=== PATIENT | female | born 1970 | race Caucasian/White ===

== ENCOUNTER → 2020-11-04 | Outpatient (CLI) | payer OTHER ==
[~2020-11-04] MED LIST: ARIMIDEX 1 MG TA1 MG PO; COLACE 100MG C100 MG PO; FENOGLIDE40 MG PO; FOSAMAX70 MG PO; LIPITOR TAB 2020 MG PO; NEURONTIN 300300 MG PO; NORCO 5-325 TA1 EACH PO; OMEGA 3 1,0001 EACH PO; PATADAY2.5 ML OP; PROZAC 20 MG CA20 MG PO; VITAMIN C500 M4 PO; VITAMIN D350 MCG PO; ZYRTEC10 M3 PO; ZYRTEC10 MG PO
[2020-11-04 13:14] LABS: BUN/CREATININE RATIO 44 (0-10)
== END ==
LOC: LAB 11:55
PROVIDERS: Family Medicine
DX: E78.2 Mixed hyperlipidemia (principal)
CPT/HCPCS: 36415; 80053; 80061

== ENCOUNTER → 2021-02-17 | Outpatient (CLI) | payer OTHER | LOC: EXRD 14:14 | DX: M79.671 Pain in right foot (principal); M79.672 Pain in left foot; R20.2 Paresthesia of skin; R20.0 Anesthesia of skin | CPT/HCPCS: 73630 ==

== ENCOUNTER → 2021-03-03 | Outpatient (CLI) | payer OTHER | LOC: EXRD 01-26 08:45 | DX: R79.89 Other specified abnormal findings of blood chemistry (principal); K76.0 Fatty (change of) liver, not elsewhere classified; N28.1 Cyst of kidney, acquired | CPT/HCPCS: 76700 ==

== ENCOUNTER → 2021-03-12 | Day surgery (SDC) | payer OTHER | END | disposition home or self-care (01) | LOC: OR 06:51 | DX: D12.3 Benign neoplasm of transverse colon (principal); D12.4 Benign neoplasm of descending colon; D12.5 Benign neoplasm of sigmoid colon; K57.31 Diverticulosis of large intestine without perforation or abscess with bleeding; E78.2 Mixed hyperlipidemia; F41.9 Anxiety disorder, unspecified; I73.9 Peripheral vascular disease, unspecified; F32.9 Major depressive disorder, single episode, unspecified; G47.33 Obstructive sleep apnea (adult) (pediatric); K21.9 Gastro-esophageal reflux disease without esophagitis; E66.9 Obesity, unspecified; Z68.32 Body mass index [BMI] 32.0-32.9, adult; Z79.899 Other long term (current) drug therapy | CPT/HCPCS: J2704; J7030 ==

== ENCOUNTER → 2021-05-25 | Outpatient (CLI) | payer OTHER ==
[2021-05-26 07:13] LABS: ALPHA-1-ANTITRYPSIN, SERUM 127 mg/dL (101-187); HBSAG SCREEN Negative (Negative); HEP A AB, IGM Negative (Negative); HEP B CORE AB, IGM Negative (Negative); HEP C VIRUS AB <0.1 (0.0-0.9); THYROXINE (T4) 7.9 ug/dL (4.5-12.0); TRIIODOTHYRONINE (T3) 155 ng/dL (71-180)
[2021-05-26 15:10] LABS: MITOCHONDRIAL (M2) ANTIBODY <20.0 Units (0.0-20.0)
== END ==
LOC: LAB 14:43
PROVIDERS: Internal Medicine Gastroenterology
DX: R94.5 Abnormal results of liver function studies (principal)
CPT/HCPCS: 80074; 80076; 82103; 82728; 83540; 83550; 84436; 84443; 84480; 86038

== ENCOUNTER → 2021-07-14 | Outpatient (CLI) | payer OTHER ==
[2021-07-15 15:14] LABS: LIVER-KIDNEY MICROSOMAL AB 1.2 Units (0.0-20.0)
== END ==
LOC: LAB 10:31
PROVIDERS: Internal Medicine Gastroenterology
DX: R94.5 Abnormal results of liver function studies (principal)
CPT/HCPCS: 36415; 82784; 83516; 86376

== ENCOUNTER → 2021-10-18 | Outpatient (CLI) | payer OTHER | LOC: EXRD 14:46 | DX: M54.2 Cervicalgia (principal) | CPT/HCPCS: 72050 ==

== ENCOUNTER → 2021-11-23 | Outpatient (CLI) | payer OTHER | LOC: EXRD 10:18 | DX: M25.562 Pain in left knee (principal) | CPT/HCPCS: 73564 ==

== ENCOUNTER → 2022-01-21 | Outpatient (CLI) | payer OTHER | LOC: LAB 13:18 | DX: R94.5 Abnormal results of liver function studies (principal) | CPT/HCPCS: 36415; 80076; 84436 ==

== ENCOUNTER → 2022-01-24 | Outpatient (CLI) | payer OTHER | LOC: LAB 15:56 | DX: N39.0 Urinary tract infection, site not specified (principal) | CPT/HCPCS: 87077; 87086; 87186 ==